=== PATIENT | female | born 1975 | race American Indian/Alaskan Native ===

== ENCOUNTER 2016-11-22 10:06 | Emergency (ER) | payer SELFPAY ==
--- NOTE | 2016-11-22 10:30 | Emergency Department Report ---
Chief Complaint: Nausea/Vomiting/Diarrhea Stated Complaint: SHAKING Time Seen by Provider: 11/22/16 10:24 - HPI History of Present Illness: 41-year-old female presents today with shaking and nausea since this morning. Denies history of similar symptoms. Denies history of anxiety. Denies chest pain, shortness of breath, abdominal pain. - ROS Review of Systems: Per HPI - Exam Vital Signs: Vital Signs 11/22/16 10:18 Temperature 98.7 F Pulse Rate 65 Respiratory 28 H Rate Blood Pressure 150/98 O2 Sat by Pulse 100 Oximetry Physical Exam: General: A 41-year-old female in no acute distress. Well-developed, well- nourished. CV: Regular rate and rhythm. Lungs: Clear to auscultation bilaterally. Abdomen: No tenderness to palpation. No guarding or rebound tenderness. MSE screening note: Focused history and physical exam performed. Due to findings the following was ordered: ED Disposition for MSE Condition: Stable
[2016-11-22 10:49] LABS: Basophils % (Auto) 0.7 % (0.0-1.8); Eosinophils % (Auto) 4.1 % (0.0-4.3); Hematocrit 42.1 % (30.3-42.9); Hemoglobin 13.6 gm/dl (10.1-14.3); Mean Corpuscular HGB Conc 32 % (30-34); Mean Corpuscular Volume 77 fl (79-97); Platelet Count 282 K/mm3 (140-440); Red Blood Count 5.47 M/mm3 (3.65-5.03); Red Cell Distribution Width 14.6 % (13.2-15.2); White Blood Count 6.5 K/mm3 (4.5-11.0)
[2016-11-22 10:50] LABS: Mean Corpuscular Hemoglobin 25 pg (28-32)
[2016-11-22 11:09] LABS: Amylase 50 units/L (27-131); Anion Gap 16 mmol/L; BUN/Creatinine Ratio 8.57; Blood Urea Nitrogen 6 mg/dL (7-17); Calcium 9.2 mg/dL (8.4-10.2); Carbon Dioxide 27 mmol/L (22-30); Chloride 98.5 mmol/L (98-107); Glucose 109 mg/dL (65-100); Lipase 27 units/L (13-60); Potassium 4.6 mmol/L (3.6-5.0); Sodium 137 mmol/L (137-145)
[2016-11-22 13:37] LABS: Bilirubin,Urine NEG (Negative); Blood,Urine NEG (Negative); Ketones,Urine NEG (Negative); Leukocyte Esterase,Urine NEG (Negative); Nitrite,Urine NEG (Negative); Protein,Urine <15 mg/dL mg/dL (Negative); Urobilinogen,Urine < 2.0 mg/dL (<2.0)
--- NOTE | 2016-11-22 17:13 | Emergency Department Report ---
HPI - General Chief Complaint: Nausea/Vomiting/Diarrhea Time Seen by Provider: 11/22/16 10:24 - HPI HPI: This is a 41-year-old Afro[place] female who presents to the emergency department by EMS from home with complaint of some nausea and vomiting and shaking. Patient says she was shaking and could not stop however it has since resolved. She denies any pain including any abdominal pain. She denies any diarrhea, fever, back pain, dysuria, vaginal bleeding or discharge. She denies any past medical history. She is currently living in [place] but is moving here shortly as her currently lives here. She is not taken anything for symptoms prior to presentation. No sick contacts at home. She denies tobacco or illicit drug use or abuse. She denies any alcohol use. ED Past Medical Hx - Past Medical History Previous Medical History?: No - Surgical History Past Surgical History?: Yes Additional Surgical History: Fibroids removed and hysterectomy - Social History Smoking Status: Never Smoker Substance Use Type: None - Medications Home Medications: Home Medications Medication Instructions Recorded Confirmed Last Taken Type Ondansetron [Zofran Odt] 4 mg PO Q8H PRN #10 tab.rapdis 11/22/16 Unknown Rx ED Review of Systems ROS: Stated complaint: SHAKING Other details as noted in HPI Comment: All other systems reviewed and negative Constitutional: denies: chills, fever Eyes: denies: eye pain, eye discharge, vision change ENT: denies: ear pain, throat pain Respiratory: denies: cough, shortness of breath, wheezing Cardiovascular: denies: chest pain, palpitations Gastrointestinal: nausea, vomiting. denies: abdominal pain, diarrhea Genitourinary: denies: urgency, dysuria, discharge Musculoskeletal: denies: back pain, joint swelling, arthralgia Skin: denies: rash, lesions Neurological: denies: headache, weakness, paresthesias Physical Exam - Physical Exam Vital Signs: Vital Signs 11/22/16 10:18 Temperature 98.7 F Pulse Rate 65 Respiratory 28 H Rate Blood Pressure 150/98 O2 Sat by Pulse 100 Oximetry Physical Exam: GENERAL: The patient is well-developed well-nourished. HEENT: Normocephalic. Atraumatic. Extraocular motions are intact. Patient has moist mucous membranes. Pupils equal reactive to light bilaterally. NECK: Supple. Trach is midline. CHEST/LUNGS: Clear to auscultation. There is no respiratory distress noted. HEART/CARDIOVASCULAR: Regular. There is no tachycardia. There is no gallop rub or murmur. ABDOMEN: Abdomen is soft, nontender. Patient has normal bowel sounds. There is no abdominal distention. SKIN: Warm and dry. NEURO: The patient is awake, alert, and oriented. The patient is cooperative. The patient has no focal neurologic deficits. The patient has normal speech and gait. Cranial nerves II-12 grossly intact. MUSCULOSKELETAL: There is no tenderness or deformity. There is no limitation range of motion. There is no evidence of acute injury. ED Course Vital Signs 11/22/16 10:18 Temperature 98.7 F Pulse Rate 65 Respiratory 28 H Rate Blood Pressure 150/98 O2 Sat by Pulse 100 Oximetry ED Medical Decision Making - Lab Data Result diagrams: 11/22/16 10:39 11/22/16 10:39 - EKG Data -: EKG Interpreted by Hi EKG shows normal: sinus rhythm, axis, intervals, QRS complexes (LVH), ST-T waves Rate: normal - EKG Data When compared to previous EKG there are: previous EKG unavailable Interpretation: LVH - Medical Decision Making 41-year-old female presents with nausea and one episode of vomiting since this morning. She denies pain, fever, problems with bowel or bladder. Patient's labs and unremarkable including no signs of infection, dehydration, renal insufficiency or glucose abnormalities. Patient has normal belly labs. EKG does not show any signs of ST elevation [place] or dysrhythmia. Patient was given 1 dose of Zofran and the patient was able to display the ability to orally rehydrate herself. Vital signs stable throughout her ED course. There is been no sign of the shivering/tremoring/anxiety that was discussed via EMS or through triage. There is no focal, motor or sensory deficits and the patient has normal gait. Patient appears safe for discharge home at this time. She'll be given some Zofran ODT for home for nausea and will increase oral rehydration. She'll be given some referrals for primary care for when she moved down here from [place] in the near future. She will return to the ER with any worsening of her symptoms or any acute distress. - Differential Diagnosis gastroenteritis, food poisoning, GERD, anxiety, viral syndrome Critical Care Time: No Critical care attestation.: If time is entered above; I have spent that time in minutes in the direct care of this critically ill patient, excluding procedure time. ED Disposition Clinical Impression: Hypertension Qualifiers: Hypertension type: essential hypertension Qualified Code(s): I10 - Essential ( primary) hypertension Nausea and vomiting Qualifiers: Vomiting type: unspecified Vomiting Intractability: non-intractable Qualified Code(s): R11.2 - Nausea with vomiting, unspecified Disposition: DISCHARGED TO HOME OR SELFCARE Is pt being admited?: No Condition: Stable Instructions: Hypertension (ED), Acute Nausea and Vomiting (ED) Additional Instructions: Please follow-up with a primary care doctor in the near future. Return to the emergency department with the inability to stay hydrated, any intractable fever , worsening of your symptoms, or any acute distress. Prescriptions: Ondansetron [Zofran Odt] 4 mg PO Q8H PRN #10 tab.rapdis PRN Reason: Nausea Referrals: PRIMARY CARE, [Primary Care Provider] - 3-5 Days LETY WEST MD [Staff Physician] - 3-5 Days DENISE BRIGHT MD [Staff Physician] - 3-5 Days [facility] [Outside] - 3-5 Days Time of Disposition: 18:15
[2016-11-22 17:25] LABS: Urine Drugs of Abuse Note Disclamer
[2016-11-22] MEDS ORDERED: ZOFRAN ODT PO ONE (17:25)
[2016-11-22 18:26] VITALS: BP 139/86
== END 2016-11-22 18:50 | disposition home or self-care (01) ==
LOC: ED 10:06
DX: I10 Essential (primary) hypertension (principal); R11.2 Nausea with vomiting, unspecified
CPT/HCPCS: 36415; 80048; 80307; 81001; 81025; 82150; 83690; 84484; 85025; 93005; 93010; Q0162